=== PATIENT | female | born 1990 | race Caucasian/White ===

== ENCOUNTER → 2020-01-17 14:09 | Outpatient (BNVA) | payer OTHER, SELFPAY | PROVIDERS: PCP Internal Medicine; Referring Provider Internal Medicine; Visit Provider Obstetrics & Gynecology | DX: Z76.89 Persons encountering health services in other specified circumstances (principal) ==

== ENCOUNTER 2020-01-26 15:35 | Outpatient (REF) | payer OTHER, SELFPAY ==
[2020-01-26 16:31] LABS: MANUAL DIFF FLAG NO
[2020-01-26 16:34] LABS: Basophils Percent Auto 0.1 % (0-2); Eosinophils Absolute Auto 0.2 X10*3/uL (0.0-0.4); Eosinophils Percent Auto 2.4 % (0-4); Hematocrit 37.7 % (37-47); Hemoglobin 11.7 g/dl (12.0-16.0); Imm Gran Abs Auto 0.02 X10*3/uL (0.00-0.03); Imm Gran Pct Auto 0.2 % (0.0-0.4); Lymphocytes Absolute Auto 3.4 X10*3/uL (1.2-4.9); Lymphocytes Percent Auto 38.4 % (20-40); Mean Corpuscular Hemoglobin 23.9 pg (27.0-33.0); Mean Corpuscular Volume 77.1 fL (80-98); Mean Platelet Volume 9.6 fL (9.4-12.3); Monocytes Absolute Auto 0.5 X10*3/uL (0.1-1.2); Monocytes Percent Auto 6.1 % (2-11); Neutrophils Absolute Auto 4.7 X10*3/uL (2.0-8.3); Neutrophils Percent Auto 52.8 % (45-73); Platelet Count 399 X10*3/uL (160-400); Red Blood Count 4.89 X10*6/uL (4.20-5.50); Red Cell Distribution Width 14.6 % (11.0-16.0); White Blood Count 8.8 X10*3/uL (4.8-10.8)
== END 2020-01-26 15:36 | disposition home or self-care (01) ==
LOC: HO.LAB 15:35
PROVIDERS: Absent Provider Obstetrics & Gynecology; PCP Internal Medicine; Visit Provider Internal Medicine
DX: D50.8 Other iron deficiency anemias (principal); J45.909 Unspecified asthma, uncomplicated
CPT/HCPCS: 36415; 85025

== ENCOUNTER → 2020-02-10 09:41 | Outpatient (BNVA) | payer OTHER, SELFPAY | PROVIDERS: Visit Provider Obstetrics & Gynecology | DX: Z76.89 Persons encountering health services in other specified circumstances (principal) ==

== ENCOUNTER 2020-03-16 14:56 | Outpatient (REF) | payer OTHER, SELFPAY ==
[2020-03-18 11:28] LABS: C. trachomatis RNA TMA NOT DETECTED (NOT DETECTED); N. gonorrhoeae RNA TMA NOT DETECTED (NOT DETECTED)
[2020-03-24 23:37] LABS: HPV mRNA E6/E7 Not Detected (Not Detected)
== END 2020-03-16 14:57 | disposition home or self-care (01) ==
LOC: HO.LAB 14:56
PROVIDERS: PCP Internal Medicine; Visit Provider Obstetrics & Gynecology
DX: Z01.419 Encounter for gynecological examination (general) (routine) without abnormal findings (principal); R10.2 Pelvic and perineal pain; R31.29 Other microscopic hematuria
CPT/HCPCS: 36415; 81003; 81025; 87491; 87591; 87624; 88142

== ENCOUNTER 2020-03-21 13:44 | Outpatient (REF) | payer OTHER, SELFPAY ==
--- NOTE | 2020-03-21 13:48 | US_ITS ---
EXAMINATION: ULTRASOUND PELVIS CLINICAL INFORMATION: COMPARISON: None TECHNIQUE: Transabdominal and transvaginal ultrasound of the pelvis is performed. FINDINGS: On transabdominal ultrasound the uterus is anteverted and anteflexed measuring 7.6 cm in length, 4.2 cm in AP and 4.8 cm in transverse dimension. Endometrial thickness is 0.9 cm. The uterus is slightly heterogeneous but no focal lesions seen. There are anechoic cysts in the cervix. The right ovary measures 2.8 x 2.0 x 3.1 cm and volume 9.1 mL. It appears unremarkable. There is a complex cystic structure seen in the right adnexa, avascular. Complex paraovarian cyst or endometrioma. It measures 2.2 x 1.5 x 1.5 cm. Left ovary measures 2.1 x 1.9 x 2.1 cm and volume 4.4 mL. It appears unremarkable. There is no free fluid in the cul-de-sac. US/US transvaginal IMPRESSION: 1. Complex avascular 2.2 cm lesion in right adnexa. Complex paraovarian cyst or endometrioma. Follow-up with a repeat ultrasound after 2 cycles or an MRI pelvis can be performed if patient has non resolving right lower quadrant pain. 2. The uterus and ovaries are unremarkable.
--- NOTE | 2020-03-21 13:48 | US_ITS ---
EXAMINATION: ULTRASOUND PELVIS CLINICAL INFORMATION: COMPARISON: None TECHNIQUE: Transabdominal and transvaginal ultrasound of the pelvis is performed. FINDINGS: On transabdominal ultrasound the uterus is anteverted and anteflexed measuring 7.6 cm in length, 4.2 cm in AP and 4.8 cm in transverse dimension. Endometrial thickness is 0.9 cm. The uterus is slightly heterogeneous but no focal lesions seen. There are anechoic cysts in the cervix. The right ovary measures 2.8 x 2.0 x 3.1 cm and volume 9.1 mL. It appears unremarkable. There is a complex cystic structure seen in the right adnexa, avascular. Complex paraovarian cyst or endometrioma. It measures 2.2 x 1.5 x 1.5 cm. Left ovary measures 2.1 x 1.9 x 2.1 cm and volume 4.4 mL. It appears unremarkable. There is no free fluid in the cul-de-sac. US/US pelvic complete IMPRESSION: 1. Complex avascular 2.2 cm lesion in right adnexa. Complex paraovarian cyst or endometrioma. Follow-up with a repeat ultrasound after 2 cycles or an MRI pelvis can be performed if patient has non resolving right lower quadrant pain. 2. The uterus and ovaries are unremarkable.
== END 2020-03-21 13:45 | disposition home or self-care (01) ==
LOC: HO.US 13:44
PROVIDERS: Visit Provider Obstetrics & Gynecology
DX: R10.2 Pelvic and perineal pain (principal)
CPT/HCPCS: 76830; 76856

== ENCOUNTER 2020-03-28 14:25 | Outpatient (REF) | payer OTHER, SELFPAY ==
[2020-03-29 10:22] LABS: CA-125 10 U/mL (<35)
[2020-03-30 17:32] LABS: C. trachomatis RNA TMA NOT DETECTED (NOT DETECTED); N. gonorrhoeae RNA TMA NOT DETECTED (NOT DETECTED)
== END 2020-03-28 14:26 | disposition home or self-care (01) ==
LOC: HO.LAB 14:25
PROVIDERS: PCP Internal Medicine; Visit Provider Obstetrics & Gynecology
DX: N83.291 Other ovarian cyst, right side (principal)
CPT/HCPCS: 36415; 81003; 86304; 87491; 87591; 99212

== ENCOUNTER 2020-06-26 11:19 | Outpatient (REF) | payer OTHER, SELFPAY ==
--- NOTE | ~2020-06-26 | US_ITS ---
EXAMINATION: PELVIC ULTRASOUND CLINICAL INFORMATION: Follow-up right adnexal cyst COMPARISON: Previous exam February 2020 TECHNIQUE: Transabdominal and transvaginal pelvic ultrasound was performed. Transvaginal exam was performed for better visualization of the uterus and ovaries. FINDINGS: The uterus is anteverted and measures 7.6 x 4.7 x 5.4 cm in dimension. No focal uterine lesion is seen. Endometrial thickness is normal measuring 1.1 cm. There are nabothian cysts in the cervix. The right ovary is normal-appearing and measures 3.1 x 2 x 1.4 cm. There is an adjacent right adnexal minimally complex cyst with slightly thickened wall. This measures 1.9 x 1.4 x 1.5 cm. This may be slightly decreased in size from previous pelvic ultrasound of this measured 2.2 x 1.5 x 1.5 cm. The left ovary is seen transabdominally only and is normal-appearing. The left ovary measures 2.3 x 1.8 x 2.1 cm. There is no fluid in the pelvis. US/US transvaginal IMPRESSION: Slight interval decrease in the right adnexal cyst measuring 1.9 x 1.4 x 1.5 cm compared to 2.2 x 1.5 x 1.5 cm on February 2020 exam.
--- NOTE | ~2020-06-26 | US_ITS ---
EXAMINATION: PELVIC ULTRASOUND CLINICAL INFORMATION: Follow-up right adnexal cyst COMPARISON: Previous exam February 2020 TECHNIQUE: Transabdominal and transvaginal pelvic ultrasound was performed. Transvaginal exam was performed for better visualization of the uterus and ovaries. FINDINGS: The uterus is anteverted and measures 7.6 x 4.7 x 5.4 cm in dimension. No focal uterine lesion is seen. Endometrial thickness is normal measuring 1.1 cm. There are nabothian cysts in the cervix. The right ovary is normal-appearing and measures 3.1 x 2 x 1.4 cm. There is an adjacent right adnexal minimally complex cyst with slightly thickened wall. This measures 1.9 x 1.4 x 1.5 cm. This may be slightly decreased in size from previous pelvic ultrasound of this measured 2.2 x 1.5 x 1.5 cm. The left ovary is seen transabdominally only and is normal-appearing. The left ovary measures 2.3 x 1.8 x 2.1 cm. There is no fluid in the pelvis. US/US pelvic complete IMPRESSION: Slight interval decrease in the right adnexal cyst measuring 1.9 x 1.4 x 1.5 cm compared to 2.2 x 1.5 x 1.5 cm on February 2020 exam.
== END 2020-06-26 11:20 | disposition home or self-care (01) ==
LOC: HO.US 11:19
PROVIDERS: PCP Internal Medicine; Visit Provider Obstetrics & Gynecology
DX: N83.291 Other ovarian cyst, right side (principal)
CPT/HCPCS: 76830; 76856

== ENCOUNTER → 2020-07-10 11:29 | Outpatient (BNVA) | payer OTHER, SELFPAY | PROVIDERS: PCP Internal Medicine; Visit Provider Obstetrics & Gynecology ==

== ENCOUNTER 2020-10-19 09:38 | Outpatient (REF) | payer OTHER, SELFPAY ==
--- NOTE | ~2020-10-19 | US_ITS ---
EXAMINATION: US PELVIS CLINICAL INFORMATION: Ovarian cyst, unspecified site. COMPARISON: None TECHNIQUE: Ultrasound of the pelvis is performed using both transabdominal and transvaginal transducers along with Doppler. Transvaginal imaging is performed due to inadequate visualization transabdominally. FINDINGS: The uterus is anteverted and anteflexed measuring 8.8 cm in length, 3.5 cm in AP and 5.5 cm in transverse dimension. The uterus is homogeneous in echotexture. No focal lesion seen. The endometrial thickness is 1.0 cm. There are small nabothian cysts in the cervix. The right ovary measures 1.7 x 2.3 x 1.8 cm and volume 3.7 mL. There is a right adnexal cyst measuring 2.3 x 1.9 x 1.7 cm. Previously, it measured 1.9 x 1.4 x 1.5 cm. Question endometrioma. Previously, the right ovary measured 3.1 x 2.0 x 1.4 cm. The left ovary measures 2.1 x 2.5 x 2.9 cm and volume 7.9 mL. Previously, the left ovary measured 2.3 x 1.8 x 2.2 cm. There is a small amount of free fluid in the cul-de-sac. US/US pelvic and transvaginal IMPRESSION: Right adnexal cyst measures 2.3 x 1.9 x 1.7 cm. It has minimally increased in size. There are small nabothian cysts in the cervix. The uterus is unremarkable.
== END 2020-10-19 09:39 | disposition home or self-care (01) ==
LOC: HO.US 09:38
PROVIDERS: Visit Provider Obstetrics & Gynecology
DX: N83.299 Other ovarian cyst, unspecified side (principal)
CPT/HCPCS: 76830; 76856

== ENCOUNTER → 2020-10-24 12:55 | Outpatient (BNVA) | payer OTHER, SELFPAY | PROVIDERS: PCP Internal Medicine; Visit Provider Obstetrics & Gynecology ==

== ENCOUNTER 2020-11-06 08:44 | Outpatient (REF) | payer OTHER, SELFPAY ==
--- NOTE | ~2020-11-06 | MR_ITS ---
EXAMINATION: MR PELVIS WITHOUT AND WITH CONTRAST CLINICAL INFORMATION: Ovarian cyst, right side. COMPARISON: Previous pelvic ultrasounds, most recent September 2020. TECHNIQUE: Sagittal, axial and coronal sequences through the pelvis were performed with and without contrast. The patient received 8.5 mL intravenous Gadavist contrast. FINDINGS: The uterus is anteverted and measures 9 x 4 x 5.3 cm in sagittal AP and transverse dimension. No focal uterine lesion is seen. The endometrium does not appear thickened measuring 4 mm. The junctional zone is normal. There are small nabothian cysts in the cervix. The ovaries are normal appearing. The right ovary measures 3.3 x 1.9 x 1.5 cm. The left ovary measures 2.8 x 1.5 x 2 cm. There are small follicles seen in both ovaries. No complex cyst or mass is seen. The bladder is not optimally distended. There is question of a 1.5 cm cyst in the cecum. This is low signal on T1-weighted sequences, high signal on T2 T2-weighted sequences and demonstrates no evidence of enhancement for example axial T2 image 1 series 7, coronal T2 image 17 series 8 and sagittal T2 image 19 series 5. The visualized bowel is otherwise unremarkable. No ascites or adenopathy is seen. No hernia is seen. MR/MR pelvis wo/w con IMPRESSION: Normal-appearing ovaries. No ovarian cyst is seen. Question 1.5 cm cyst in the cecum.
== END 2020-11-06 08:45 | disposition home or self-care (01) ==
LOC: HO.MRI 08:44
PROVIDERS: PCP Internal Medicine; Visit Provider Obstetrics & Gynecology
DX: N83.291 Other ovarian cyst, right side (principal)
CPT/HCPCS: 72197; A9585

== ENCOUNTER 2020-12-12 16:13 | Outpatient (REF) | payer OTHER, SELFPAY ==
[2020-12-12 16:24] LABS: MANUAL DIFF FLAG NO
[2020-12-12 16:53] LABS: Eosinophils Absolute Auto 0.2 X10*3/uL (0.0-0.4); Eosinophils Percent Auto 2.1 % (0-4); Hematocrit 36.6 % (37-47); Hemoglobin 11.8 g/dl (12.0-16.0); Imm Gran Abs Auto 0.04 X10*3/uL (0.00-0.03); Imm Gran Pct Auto 0.4 % (0.0-0.4); Lymphocytes Absolute Auto 3.3 X10*3/uL (1.2-4.9); Lymphocytes Percent Auto 31.2 % (20-40); Mean Corpuscular HGB Conc 32.2 g/dl (31.0-35.0); Mean Corpuscular Hemoglobin 24.9 pg (27.0-33.0); Mean Corpuscular Volume 77.4 fL (80-98); Mean Platelet Volume 9.7 fL (9.4-12.3); Monocytes Absolute Auto 0.6 X10*3/uL (0.1-1.2); Neutrophils Absolute Auto 6.4 X10*3/uL (2.0-8.3); Neutrophils Percent Auto 60.3 % (45-73); Platelet Count 469 X10*3/uL (160-400); Red Blood Count 4.73 X10*6/uL (4.20-5.50); Red Cell Distribution Width 13.8 % (11.0-16.0); White Blood Count 10.6 X10*3/uL (4.8-10.8)
[2020-12-12 17:31] LABS: Alanine Aminotransferase 53 U/L (0-31); Albumin Level 4.6 g/dL (3.5-5.0); Alkaline Phosphatase 83 U/L (39-117); Anion Gap 14 (12-20); Aspartate Amino Transferase 36 U/L (5-31); Bilirubin Total 0.2 mg/dL (0.0-1.0); Blood Urea Nitrogen 13 mg/dL (9-16); Calcium 10.2 mg/dL (8.4-10.2); Carbon Dioxide 26 mmol/L (22-29); Chloride 105 mmol/L (96-108); Cholesterol 184 mg/dL; Estimated Glomerular Filt Rate > 60; Glucose Random 99 mg/dL (60-115); HDL Cholesterol 31 mg/dL; LDL Cholesterol Calculated 117 mg/dl; Potassium 4.9 mmol/L (3.3-5.1); Sodium 140 mmol/L (135-145); Total Protein 7.8 g/dL (6.5-8.0); Triglycerides 181 mg/dL
== END 2020-12-12 16:14 | disposition home or self-care (01) ==
LOC: HO.LAB 16:13
PROVIDERS: PCP Internal Medicine; Visit Provider Internal Medicine
DX: I10 Essential (primary) hypertension (principal); M54.89 Other dorsalgia; R51.9 Headache, unspecified
CPT/HCPCS: 36415; 80053; 80061; 85025

== ENCOUNTER → 2020-12-18 08:25 | Outpatient (BNVA) | payer OTHER, SELFPAY | PROVIDERS: PCP Internal Medicine; Visit Provider Obstetrics & Gynecology | DX: N83.291 Other ovarian cyst, right side (principal); K63.9 Disease of intestine, unspecified | CPT/HCPCS: 99212 ==

== ENCOUNTER 2021-02-21 15:00 | Outpatient (RCR) | payer OTHER, SELFPAY | END 2021-02-21 15:44 | disposition home or self-care (01) | LOC: HO.PT 15:00 | PROVIDERS: PCP Internal Medicine; Visit Provider Internal Medicine | DX: M54.16 Radiculopathy, lumbar region (principal) | CPT/HCPCS: 97110; 97112; 97140; 97150; 97162; 97530 ==

== ENCOUNTER 2021-03-09 08:03 | Outpatient (REF) | payer OTHER, SELFPAY ==
--- NOTE | ~2021-03-09 | US_ITS ---
EXAMINATION: US ABDOMEN COMPLETE CLINICAL INFORMATION: Elevated liver enzymes. COMPARISON: XR abdomen KUB 09/15/2017. TECHNIQUE: Real-time imaging of the abdominal viscera. FINDINGS: PANCREAS: Normal. ABDOMINAL AORTA: The proximal, mid, and distal segments are normal in caliber. INFERIOR VENA CAVA: Visualized portions are normal. LIVER: The liver is normal in size. The liver contour is normal. Liver echotexture is increased. No focal hepatic lesion. There is no intrahepatic biliary duct dilatation seen. GALLBLADDER: Normal. The gallbladder is physiologically distended without evidence of stones, sludge, polyps, wall thickening or pericholecystic fluid. COMMON BILE DUCT: Normal in caliber measuring 0.6 cm in diameter. RIGHT KIDNEY: Normal. No hydronephrosis. No renal calculi or focal parenchymal lesions. The kidney measures 10.5 cm in maximum dimension. LEFT KIDNEY: Normal. No hydronephrosis. No renal calculi or focal parenchymal lesions. The kidney measures 10.8 cm in maximum dimension. SPLEEN: Normal. The spleen measures 9.9 cm in maximum dimension. FREE FLUID: None. US/US abdomen complete IMPRESSION: Echogenic liver probably representing fatty infiltration.
== END 2021-03-09 08:04 | disposition home or self-care (01) ==
LOC: HO.US 08:03
PROVIDERS: PCP Internal Medicine; Visit Provider Internal Medicine
DX: R74.8 Abnormal levels of other serum enzymes (principal)
CPT/HCPCS: 76700

== ENCOUNTER 2021-03-09 08:42 | Outpatient (REF) | payer OTHER, SELFPAY ==
[2021-03-13 01:57] LABS: CA-125 9 U/mL (<35)
== END 2021-03-09 08:43 | disposition home or self-care (01) ==
LOC: HO.LAB 08:42
PROVIDERS: PCP Internal Medicine; Visit Provider Obstetrics & Gynecology
DX: N83.299 Other ovarian cyst, unspecified side (principal)
CPT/HCPCS: 36415; 86304

== ENCOUNTER → 2021-03-21 08:19 | Outpatient (BNVA) | payer OTHER, SELFPAY | PROVIDERS: PCP Internal Medicine; Visit Provider Obstetrics & Gynecology ==

== ENCOUNTER 2021-03-26 08:04 | Day surgery (SDC) | payer OTHER, SELFPAY ==
[2021-03-20 14:30] VITALS: BMI 39.2
--- NOTE | 2021-03-23 10:32 | HO.ANESPROP2 ---
Documented by User: Mary Anne Phillips NP 03/23/21 10:33 HPI - Anesthesia Eval Consult details Narrative: 30yo F for Upper Endoscopy and Colonoscopy [facility] Active Problems Active Problems: All Active Problems (Updated 12/18/20 @ 08:46 by Shabbir Perez MD) Disorder of cecum (Acute) Complex cyst of right ovary (Acute) Microscopic hematuria (Acute) Pelvic pain (Acute) Well woman exam (Acute) Anemia (Acute) Family History Family History Mother Diabetes Scoliosis Father Kidney failure Brother Scoliosis Surgical History Surgical History Hx of section Social History Social History Alcohol intake: never Patient Tobacco Use Status: Never used Tobacco Use of substances other than those prescribed or required for medical reasons: No Are you DNR?: No Advance Directives: No Advance Directives Information Provided: Yes Sexual orientation: Straight/Heterosexual Gender identity: Female Meds Allergies Allergy/AdvReac Type Severity Reaction Status Date / Time garlic [GARLIC] Allergy Severe DIARRHEA Verified 03/21/21 08:32 Garlic Allergy Unknown stomach Uncoded 12/18/20 08:36 upset Home Medications Medication Instructions Recorded Confirmed Last Taken Type omeprazole 10 mg capsule,delayed 10 mg PO DAILY 07/10/20 Unknown History release Exam Exam Date and Time: March 23, 2021 1032 Height,Weight and Vital Signs: Height 4 ft 11 in Weight 87.997 kg Assessment and Plan Assessment Anesthesia Assessment: Chart Reviewed Documented by User: Jacinda Villatoro MD 03/26/21 09:10 [facility] Family History Family History Mother Diabetes Scoliosis Father Kidney failure Brother Scoliosis Family history of problems with anesthesia: No Surgical History Surgical History Hx of section History of Problems with Anesthesia: No Social History Social History Alcohol intake: never Patient Tobacco Use Status: Never used Tobacco Use of substances other than those prescribed or required for medical reasons: No Are you DNR?: No Advance Directives: No Advance Directives Information Provided: Yes Sexual orientation: Straight/Heterosexual Gender identity: Female Meds Allergies Allergy/AdvReac Type Severity Reaction Status Date / Time garlic [GARLIC] Allergy Severe DIARRHEA Verified 03/21/21 08:32 Garlic Allergy Unknown stomach Uncoded 12/18/20 08:36 upset Home Medications Medication Instructions Recorded Confirmed Last Taken Type omeprazole 10 mg capsule,delayed 10 mg PO DAILY 07/10/20 Unknown History release Exam Airway Mallampati Class: II TM Dist: >3cm Neck ROM: Full Heart: rrr Lungs: cta Assessment and Plan Assessment Anesthesia Assessment: Anesthesia Plan Discussed and Chart Reviewed Final Anesthetic Review Family History of Problems with Anesthesia: No History of Problems with Anesthesia: No NPO: Yes ASA Class: II Final Preanesthetic Review: No Changes in Pt Med Stat, Meds/Allgs Chart Reviewed, Consent Obtained/Reviewed and Anes Risks/Benef Reviewed Patient Risk: Intermediate Procedure Risk: Intermediate Anesthetic Plan Anesthetic Plan: MAC: Disposition: Standard PACU
[2021-03-26 09:13] LABS: UPreg QC Valid YES; Urine Pregnancy NEGATIVE (NEGATIVE)
[2021-03-26] MEDS: Lactated Ringers 1,000 ML 100 ML IVCONT (09:24)
[2021-03-26 10:40] VITALS: BP 95/58; PULSE 86; RESP 20; TEMP 36.4; O2SAT 97
--- NOTE | 2021-03-26 10:44 | PM.OP ---
Brief Operative Note Date of Service: 03/26/21 Pre-op diagnosis: GERD, Abnormal MRI of colon Post-op diagnosis: other (Small hiatal hernia, Cecal lipoma) Procedure: EGD, Colonoscopy to the cecum and TI with biopsies Surgeon: Mykel Francis Anesthesia: MAC Was an Ski Lift Operator used for this Procedure?: No Estimated blood loss (mL): 2.0 Pathology: other (A. Cecal lipoma) Condition: stable Disposition: PACU
[2021-03-26 10:55] VITALS: BP 114/48; PULSE 84; RESP 18; TEMP 36.3; O2SAT 99
--- NOTE | 2021-03-26 11:28 | OP_ITS ---
SURGEON: Mykel Francis MD INDICATIONS: The patient presents for evaluation of chronic gastroesophageal reflux and abnormal MRI of the colon. Full consent has been obtained from her for this, including risks of bleeding and perforation. PREOPERATIVE DIAGNOSIS: POSTOPERATIVE DIAGNOSIS: PROCEDURE PERFORMED: Esophagogastroduodenoscopy and colonoscopy to the cecum and terminal ileum with biopsy. ESTIMATED BLOOD LOSS: COMPLICATIONS: ANESTHESIA: Monitored anesthesia care. ASSISTANTS: SPECIMENS: PREOPERATIVE DIAGNOSES: Gastroesophageal reflux and abnormal MRI of colon. POSTOPERATIVE DIAGNOSES: Gastroesophageal reflux, abnormal MRI of colon, small hiatal hernia, cecal lipoma, internal hemorrhoids. DESCRIPTION OF PROCEDURE: The patient was placed in the left lateral decubitus position. The Olympus video gastroscope was passed in the posterior oropharynx and upper esophagus under direct vision. The scope was passed slowly into the distal esophagus. The gastroesophageal junction appeared normal at 35 cm. There was no sign of any esophagitis nor Jessica's esophagus. The scope entered the stomach. There was a small hiatal hernia. The scope was advanced to the pylorus and the duodenum was cannulated to the descending portion. The duodenum including the bulb appeared normal without mass or ulceration. The scope was withdrawn back in the stomach. The gastric antrum and body appeared normal with good peristalsis. The scope was retroflexed visualizing the proximal stomach carefully, which appeared normal, without any sign of mass or ulceration. Scope was straightened and withdrawn back to the esophagus. The esophageal mucosa appeared normal. Scope was withdrawn from the patient. She was turned around for the colonoscopy. The digital rectal exam revealed no abnormalities. The Olympus video pediatric colonoscope was entered into the rectum and advanced easily to the cecum. Once in the cecum, I did identify normal-appearing cecal pouch other than what appeared to be a submucosal mass consistent with lipoma. The overlying mucosa appeared normal and was quite soft when probed with a biopsy forceps. Several biopsies were obtained. This corresponded with the abnormality seen on the MRI. The terminal ileum was cannulated and appeared normal. Scope was withdrawn back in the colon. The remainder of the cecum including the appendiceal orifice appeared normal. The scope was then slowly withdrawn assessing all mucosal surfaces carefully. For the most part, preparation was very good throughout the colon. There was no sign of any polyps, colitis, nor angiodysplasia. In the rectum, scope was retroflexed visualizing some internal hemorrhoids, but no other pathology. The rectal mucosa appeared normal. The scope was straightened and withdrawn from the patient. She tolerated the procedure well and was returned to the recovery area in stable condition. IMPRESSION: 1. Cecal lipoma. 2. Internal hemorrhoids. 3. Small hiatal hernia. PLAN: The results of biopsies will be checked. She will continue her omeprazole as that is working well for her in regard to the reflux. She will be seen later in the year for followup in regard to the slightly elevated LFTs and presumed fatty liver. She had an ultrasound and lab work which I will check. MD KRISTA Hernandez/BART / [id number] MTDD
== END 2021-03-26 11:28 | disposition home or self-care (01) ==
PROVIDERS: Nurse Practitioner; PCP Internal Medicine; Visit Provider Internal Medicine
PROC: (CPT 45380; principal; 2021-03-26 09:30)
DX: D17.5 Benign lipomatous neoplasm of intra-abdominal organs (principal); K64.8 Other hemorrhoids; K21.9 Gastro-esophageal reflux disease without esophagitis; K44.9 Diaphragmatic hernia without obstruction or gangrene; R74.01 Elevation of levels of liver transaminase levels; Z79.899 Other long term (current) drug therapy
CPT/HCPCS: 45380; 43235; 81025; 88305

== ENCOUNTER 2021-06-19 11:45 | Emergency (ER) | payer OTHER, SELFPAY ==
--- NOTE | ~2021-06-19 | XR_ITS ---
EXAMINATION: XR KNEE, LEFT CLINICAL INFORMATION: Atraumatic left knee pain COMPARISON: None TECHNIQUE: Four views of the left knee. FINDINGS: Bones and soft tissues are normal. No fracture or joint effusion. Alignment is anatomic. Joint spaces are well maintained. No abnormal soft tissue calcification. XR/XR knee LT 4V IMPRESSION: Normal left knee.
[2021-06-19 12:03] VITALS: BP 136/80; PULSE 79; RESP 18; TEMP 36.3; O2SAT 99; BMI 39.9
--- NOTE | 2021-06-19 12:36 | ED.GENADULT ---
HPI - General Adult General Chief complaint: Skin/Abscess/Foreign Body Stated complaint: lump with burning feeling in leg Time Seen by Provider: 06/19/21 12:21 Source: patient Mode of arrival: ambulatory Limitations: no limitations History of Present Illness HPI narrative: 30-year-old female states that she was walking for hours yesterday which is very abnormal for her but she had done she noticed some pain to her calf and to her dean she denies any falls or injuries and she noticed a small bruise to the area she is very concerned as she states she also had some numbness to her left calf. Patient denies any chest pain cough fever falls or injuries. Related Data Home Medications Medication Instructions Recorded Confirmed omeprazole 10 mg capsule,delayed 10 mg PO DAILY 07/10/20 release Allergies Allergy/AdvReac Type Severity Reaction Status Date / Time garlic [GARLIC] Allergy Severe DIARRHEA Verified 06/19/21 12:03 Garlic Allergy Unknown stomach Uncoded 12/18/20 08:36 upset Review of Systems Review of Systems: Review of systems: General: Patient denies any fever chills recent illness or falls Musculoskeletal: Denies back pain or body aches or other injuries HEENT: denies headache, runny nose, ear pain Respiratory: denies shortness of breath, cough Cardiovascular: no chest pain or palpitations : denies dysuria, frequency Abdomen: no nausea vomiting denies abdominal pain Extremities: no swelling, pain to upper mid dean where there is a bruise as well as left calf numbness Skin: no diaphoresis Yes all other systems are reviewed and are negative PMFSH Past Medical History Surgical History Hx of section Family History Family History Mother Diabetes Scoliosis Father Kidney failure Brother Scoliosis Social History Social History Alcohol intake: never Patient Tobacco Use Status: Never used Tobacco Advance Directives: No Advance Directives Information Provided: No Sexual orientation: Straight/Heterosexual Gender identity: Female Physical Exam ED Vital Signs: Vital Signs - 24 hr 06/19/21 12:03 Temperature 97.3 F Pulse Rate 79 Respiratory Rate 18 Blood Pressure 136/80 Pulse Oximetry 99 BMI result Body Mass Index 39.9 General: Well-appearing well-nourished in no signs of distress HEENT: Normocephalic atraumatic Neck: No signs of JVD, no masses no tenderness or lymphadenopathy Cardiovascular: Regular rate and rhythm Respiratory: Clear to auscultation bilaterally Abdomen: Soft nontender no masses Extremities: Normal pedal pulses no signs of edema normal strength Skin: Small contusion to upper mid dean no other injuries Dry warm no rashes Back: No tenderness full ROM Medical Decision Making MDM Narrative Medical decision making narrative: This sounds like an overuse injury after much walking I do not think there is any acute disease process x-rays ordered by triage which has not able to cancel I think ibuprofen and ice and decreased ambulation next 2 days this should resolve not think there is any lab tests and redone. Imaging Data XR knee shows no acute disese process I will send home.: Attestation: I personally reviewed and interpreted this imaging study as follows: Discharge Plan Discharge Clinical Impression: Anterior dean splints, Contusion Patient Disposition: Home, Self-Care Instructions: Dean Splints (ED), Contusion in Adults (ED) Additional Instructions: Your x-ray is normal please call follow-up with . Please use ice elevate the leg the next 2 days and can try ibuprofen for pain. If you have any other concerns please do not hesitate to come back to the emergency department. Prescriptions: No Action omeprazole 10 mg capsule,delayed release(DR/EC) 10 mg PO DAILY 0RF
[2021-06-19] MEDS: Ibuprofen 400 MG TABLET PO (12:57)
== END 2021-06-19 13:20 | disposition home or self-care (01) ==
PROVIDERS: Emergency Provider Student in an Organized Health Care Education/Training Program; PCP Internal Medicine
DX: S80.12XA Contusion of left lower leg, initial encounter (principal); S86.899A Other injury of other muscle(s) and tendon(s) at lower leg level, unspecified leg, initial encounter; X58.XXXA Exposure to other specified factors, initial encounter; Y93.9 Activity, unspecified; Y92.9 Unspecified place or not applicable; Y99.9 Unspecified external cause status
CPT/HCPCS: 73564; 99283

== ENCOUNTER 2021-08-08 16:13 | Outpatient (REF) | payer OTHER, SELFPAY ==
[2021-08-08 16:34] LABS: MANUAL DIFF FLAG NO
[2021-08-08 16:55] LABS: Basophils Percent Auto 0.2 % (0-2); Eosinophils Absolute Auto 0.2 X10*3/uL (0.0-0.4); Eosinophils Percent Auto 2.1 % (0-4); Hematocrit 37.9 % (37.0-47.0); Hemoglobin 12.1 g/dl (12.0-16.0); Imm Gran Abs Auto 0.03 X10*3/uL (0.00-0.03); Imm Gran Pct Auto 0.3 % (0.0-0.4); Lymphocytes Percent Auto 31.2 % (20-40); Mean Corpuscular HGB Conc 31.9 g/dl (31.0-35.0); Mean Corpuscular Hemoglobin 24.5 pg (27.0-33.0); Mean Corpuscular Volume 76.9 fL (80.0-98.0); Mean Platelet Volume 9.8 fL (9.4-12.3); Monocytes Absolute Auto 0.6 X10*3/uL (0.1-1.2); Monocytes Percent Auto 5.9 % (2-11); Neutrophils Absolute Auto 5.8 x10*3/uL (2.0-8.3); Neutrophils Percent Auto 60.3 % (45-73); Platelet Count 390 X10*3/uL (160-400); Red Blood Count 4.93 X10*6/uL (4.20-5.50); Red Cell Distribution Width 14.5 % (11.0-16.0); White Blood Count 9.7 X10*3/uL (4.8-10.8)
[2021-08-08 16:59] LABS: INTERNATIONAL NORM RATIO 1.1 (0.9-1.1); Prothrombin Time 12.1 SEC (9.9-13.0)
[2021-08-08 17:31] LABS: Alanine Aminotransferase 43 U/L (0-31); Albumin Level 4.5 g/dL (3.5-5.0); Alkaline Phosphatase 77 U/L (39-117); Aspartate Amino Transferase 32 U/L (5-31); Bilirubin Direct < 0.2 mg/dL (0.0-0.5); Bilirubin Total 0.3 mg/dL (0.0-1.0); Iron 46 mcg/dL (30-160); Percent Iron Saturation 12 % (15-50); Total Iron Binding Capacity 398 mcg/dL (228-428); Total Protein 7.6 g/dL (6.5-8.0); Unsaturated Iron Binding 352 ug/dL
[2021-08-08 17:53] LABS: Ferritin 25 ng/mL (10-122)
[2021-08-09 08:45] LABS: HBS Num1 142.15 mIU/mL (0-7.99); HBc Num1 0.09 S/CO (0.00-0.79); HBsAGNum1 0.19 S/CO (0.00-0.99); Hepatitis B Core Antibody Nonreactive (Nonreactive); Hepatitis B Surface Antigen Negative (Negative); ~HepC Num1 0.08 S/CO (0.00-0.79); ~Hepatitis B Surface Antibody REACTIVE (Nonreactive); ~Hepatitis C Antibody Nonreactive (Nonreactive)
[2021-08-10 15:33] LABS: Anti Nuclear Antibody Screen NEGATIVE (NEGATIVE); Immunoglobulin A 281 mg/dL (47-310)
[2021-08-10 22:16] LABS: Alpha 1 Anti-trypsin 132 mg/dL (83-199); Ceruloplasmin 32 mg/dL (18-53)
[2021-08-11 07:52] LABS: Gliadin Deamidated IgA Ab <1.0 U/mL; Gliadin Deamidated IgG Ab <1.0 U/mL; Transglutaminase Ab IgG <1.0 U/mL; Transglutaminase IgA <1.0 U/mL
[2021-08-13 17:10] LABS: Mitochondrial Antibodies NEGATIVE (NEGATIVE)
[2021-08-14 00:12] LABS: Endomysial IgA Antibody Negative (Negative)
[2021-08-14 23:21] LABS: Smooth Muscle Antibody <20 U (<20)
== END 2021-08-08 16:14 | disposition home or self-care (01) ==
LOC: HO.LAB 16:13
PROVIDERS: PCP Internal Medicine; Visit Provider Internal Medicine
DX: K52.9 Noninfective gastroenteritis and colitis, unspecified (principal); R74.8 Abnormal levels of other serum enzymes
CPT/HCPCS: 36415; 80076; 82103; 82390; 82728; 82784; 83540; 85025; 85610; 86015; 86038; 86039; 86231; 86255; 86256; 86258; 86364; 86704; 86706; 86803; 87340

== ENCOUNTER 2021-09-11 15:09 | Outpatient (REF) | payer OTHER, SELFPAY ==
[2021-09-11 16:27] LABS: Thyroid Stimulating Hormone 1.75 uIU/mL (0.32-4.0)
[2021-09-13 16:56] LABS: Follicle Stimulating Hormone 5.5 mIU/mL; Prolactin 11.5 ng/mL
== END 2021-09-11 15:10 | disposition home or self-care (01) ==
LOC: HO.LAB 15:09
PROVIDERS: PCP Internal Medicine; Visit Provider Internal Medicine
DX: H81.11 Benign paroxysmal vertigo, right ear (principal); N91.1 Secondary amenorrhea
CPT/HCPCS: 36415; 83001; 84146; 84443

== ENCOUNTER 2021-11-19 13:32 | Outpatient (REF) | payer OTHER, SELFPAY ==
[2021-11-19 14:02] LABS: Hematocrit 39.8 % (37.0-47.0); Hemoglobin 12.6 g/dl (12.0-16.0); Mean Corpuscular HGB Conc 31.7 g/dl (31.0-35.0); Mean Corpuscular Volume 78.8 fL (80.0-98.0); Mean Platelet Volume 9.5 fL (9.4-12.3); Platelet Count 357 X10*3/uL (160-400); Red Blood Count 5.05 X10*6/uL (4.20-5.50); Red Cell Distribution Width 14.1 % (11.0-16.0); White Blood Count 10.8 X10*3/uL (4.8-10.8)
[2021-11-19 15:05] LABS: HCG Quantitative < 2 mIU/mL; TSH reflex Free T4 3.12 uIU/mL (0.32-4.0)
[2021-11-20 06:06] LABS: CT PCR NOT DETECTED (Not Detect.); NG PCR NOT DETECTED (Not Detect.)
== END 2021-11-19 13:33 | disposition home or self-care (01) ==
LOC: HO.LNP 13:32
PROVIDERS: Visit Provider Obstetrics & Gynecology
DX: Z11.3 Encounter for screening for infections with a predominantly sexual mode of transmission (principal); N93.9 Abnormal uterine and vaginal bleeding, unspecified
CPT/HCPCS: 84443; 84702; 85027; 87491; 87591; 99212

== ENCOUNTER 2021-12-10 13:35 | Outpatient (REF) | payer OTHER, SELFPAY ==
--- NOTE | ~2021-12-10 | US_ITS ---
EXAMINATION: US PELVIS CLINICAL INFORMATION: Abnormal uterine and vaginal bleeding. COMPARISON: None TECHNIQUE: Ultrasound of the pelvis is performed using both transabdominal and transvaginal transducers along with Doppler. Transvaginal imaging is performed due to inadequate visualization transabdominally. FINDINGS: UTERUS: The uterus is anteverted, anteflexed and measures 8.2 cm in length, 4.2 cm AP and 6.1 cm in transverse dimension. The double wall endometrial thickness measures 0.7 cm. The uterus is smooth in contour and has normal myometrial echogenicity. No visible fibroid. There are small nabothian cysts seen in the cervix. ADNEXA: Both ovaries are visualized. There is normal color flow to the adnexa. There is no ovarian torsion. There is no pelvic ascites or fluid collection. Right ovary measures 0.9 x 2.7 x 2.5 cm and volume 10.2 mL. There is a right para-adnexal cyst measuring 1.5 x 1.6 x 1.4 cm. Previously it measured 2.3 x 1.9 x 1.7 cm. Left ovary measures 2.6 x 1.5 x 2.3 cm and volume 4.7 mL. There is an anechoic cyst measuring 1.1 x 0.9 x 0.8 cm. There is no free fluid in the cul-de-sac. US/US pelvic and transvaginal IMPRESSION: 1. Unremarkable uterus. 2. Small nabothian cysts in the cervix. 3. Right para-adnexal cyst measuring 1.6 cm. Previously it measured 2.3 x 1.9 x 1.7 cm. 4. Simple cyst left ovary measuring 1.1 cm. 5. There is no free fluid in the cul-de-sac.
== END 2021-12-10 13:36 | disposition home or self-care (01) ==
LOC: HO.US 13:35
PROVIDERS: Visit Provider Obstetrics & Gynecology
DX: N93.9 Abnormal uterine and vaginal bleeding, unspecified (principal)
CPT/HCPCS: 76830; 76856

== ENCOUNTER → 2021-12-19 14:30 | Outpatient (BNVA) | payer OTHER, SELFPAY | PROVIDERS: PCP Internal Medicine; Visit Provider Obstetrics & Gynecology | DX: N93.9 Abnormal uterine and vaginal bleeding, unspecified (principal) | CPT/HCPCS: 99212 ==

== ENCOUNTER 2023-04-03 15:00 | Outpatient (RCR) | payer OTHER, SELFPAY | END 2023-05-07 11:22 | disposition home or self-care (01) | LOC: HO.PT 15:00 | PROVIDERS: PCP Internal Medicine; Visit Provider Internal Medicine | DX: M54.50 Low back pain, unspecified (principal) | CPT/HCPCS: 97110; 97112; 97161 ==

== ENCOUNTER 2023-10-22 19:07 | Emergency (ER) | payer OTHER, SELFPAY ==
--- NOTE | ~2023-10-22 | XR_ITS ---
EXAMINATION: XR FOOT, RIGHT CLINICAL INFORMATION: Pain COMPARISON: None available. TECHNIQUE: AP, lateral, and oblique views of the right foot. FINDINGS: The bones and soft tissues are normal. No fracture. Alignment is anatomic. Joint spaces are maintained. XR/XR foot RT min 3V IMPRESSION: Normal right foot. Electronically signed by: Asael Wu MD 10/22/2023 08:47 PM EDT RP
--- NOTE | ~2023-10-22 | XR_ITS ---
EXAMINATION: XR ANKLE, RIGHT CLINICAL INFORMATION: Pain. COMPARISON: None available. TECHNIQUE: AP, lateral, and mortise views of the right ankle. FINDINGS: No fracture. Alignment is anatomic. No erosions. Joint spaces are maintained. Soft tissues are normal. XR/XR ankle RT min 3V IMPRESSION: Normal right ankle. Electronically signed by: Asael Wu MD 10/22/2023 08:46 PM EDT RP
--- NOTE | 2023-10-22 19:50 | ED_ITS ---
HPI - General Adult General Chief complaint: Extremity Injury, Lower Stated complaint: trailer fell on foot Time Seen by Provider: 10/22/23 22:02 Source: patient Mode of arrival: ambulatory Limitations: no limitations History of Present Illness ED Provider: Dr. Brito HPI narrative: Patient dropped a trailer tongue on her foot. No other injury Onset (ago): hour(s) Related Data Home Medications ?Medication ?Instructions ?Recorded ?Confirmed omeprazole 10 mg capsule,delayed 10 mg PO DAILY 07/10/20 release Allergies Allergy/AdvReac Type Severity Reaction Status Date / Time garlic [GARLIC] Allergy Severe DIARRHEA Verified 10/22/23 19:53 Review of Systems Review of Systems: Yes all other systems are reviewed and are negative Neurologic: Denies Sensory deficit (Neuro) PMFSH Past Medical History Surgical History Hx of section Family History Family History Mother Diabetes Scoliosis Father Kidney failure Brother Scoliosis Social History Social History Household Members: Spouse Household Members Other:: daughter Housing: Apartment Alcohol intake: never Patient Tobacco Use Status: Never used Tobacco Advance Directives: No Advance Directives Information Provided: No Do you have a plan to hurt others: No Plan Current occupational status: employed Current occupation: [employer] M[employer]PER[employer] Sexual orientation: Straight/Heterosexual Gender identity: Female Physical Exam ED Vital Signs: Vital Signs - 24 hr 10/22/23 19:51 Temperature 97.1 F Pulse Rate 85 Respiratory Rate 18 Blood Pressure 136/77 Pulse Oximetry 100 Oxygen Delivery Method Room Air BMI result Body Mass Index 39.4 Const General: healthy appearing Nutritional Appearance: average body habitus Orientation/consciousness: oriented to person and patient oriented x3 Limitations: no limitations HENMT Head: Yes normal to inspection Ears: external ears normal General nose exam: Normal external nose present Mouth: Normal oral and palatal mucosa present and oropharynx normal Throat: Yes posterior oropharynx normal Eyes General: appearance normal, both eyes and all related structures Neck Neck: Yes normal visual inspection Chest Chest palpation & inspection: normal inspection of the chest Resp Auscultation: clear to auscultation bilaterally Cardio Jugular venous distension: no JVD Rate: regular rate Rhythm: regular rhythm Heart sounds: S1 normal heart sound present and S2 normal heart sound present GI Inspection: Yes normal to inspection Palpation (GI): Soft to palpation, nontender and No hepatosplenomegaly present Auscultation: normal bowel sounds General: Yes no CVA tenderness Back/Spine/Pelvis Back: no CVA tenderness Skin General skin exam: no rashes or lesions noted Neuro General: oriented to person and patient oriented x3 Cranial nerves: Yes CN's II-XII intact bilaterally Motor exam (neuro): 5/5 motor strength present throughout Sensory Exam: No Sensory deficit (Neuro) Extrem Other: right foot, with swelling and ecchymosis between 1st and 2nd digit on distal metatarsals Psych Appearance: grossly normal Course Course Course Narrative: This is an RME done by ALEXANDRA Moise: Additional HPI, ROS, PE not included below will be deferred to primary provider. 32 year old F presenting with complaints of R foot pain (09/02) after crush injury from dropping a trailer onto her R miriam lux. Appearance: Alert.? Oriented X3.? No acute cardiopulmonary distress distress.? Head: Normocephalic, atraumatic, no step-offs or deformities Neck: Normal inspection.? Neck supple.? CVS: Pulses normal.? Respiratory: No respiratory distress.? Abdomen: Soft and nontender.? Skin: ? Normal skin color. Extremities: 5/5 strength to bilateral upper and lower extremities; small abrasion to R hallux with numbness Neuro: Oriented X 3.? No motor deficit.? No sensory deficit. Reevaluation(s) Reevaluation #1: no evidence of fracture on xray Time: 22:11 Medications Administered Discontinued Medications Generic Name Dose Route Start Last Admin Trade Name Rosemarie PRN Reason Stop Dose Admin Acetaminophen 650 mg 10/22/23 21:25 10/22/23 21:30 Acetaminophen 325 Mg Tablet PO 10/22/23 21:26 650 mg ONCE ONE Administration Medical Decision Making Differential Diagnosis Differential Diagnoses: The differential diagnosis associated with the presentation includes (foot fracture, foot contusion) Independent Interpretation I performed an independent interpretation of an: Plain X-Ray (foot: no fracture ankle: no fracture) Independent Historian Clinical information obtained from an independent historian. History obtained from or confirmed by: Friend Discharge Plan Discharge Clinical Impression: Contusion of foot Patient Disposition: Home, Self-Care Instructions: Foot Contusion (ED), R.I.C.E. Treatment (ED) Additional Instructions: may take tylenol or motrin for pain Prescriptions: No Action omeprazole 10 mg capsule,delayed release(DR/EC) 10 mg PO DAILY Referrals: Tg Oshea MD [Primary Care Provider] - 10 days Interventions: ED Discharge Assessment Last Done: 10/22/23 22:30 Discharge Date/Time: 10/22/23 22:31 Print Language: Bengali
[2023-10-22 19:51] VITALS: BP 136/77; PULSE 85; RESP 18; TEMP 36.2; O2SAT 100; BMI 39.4
[2023-10-22] MEDS: Acetaminophen 325 MG TABLET 650 MG PO (21:30)
[2023-10-22 22:05] VITALS: BP 128/72; PULSE 78; RESP 20; TEMP 36.7; O2SAT 98
[2023-10-22 22:30] VITALS: BP 128/72; PULSE 78; RESP 20; TEMP 36.7; O2SAT 98
== END 2023-10-22 22:31 | disposition home or self-care (01) ==
PROVIDERS: Emergency Provider Emergency Medicine; PCP Internal Medicine
DX: S90.31XA Contusion of right foot, initial encounter (principal); W23.0XXA Caught, crushed, jammed, or pinched between moving objects, initial encounter; Y93.89 Activity, other specified; Y92.9 Unspecified place or not applicable; Y99.9 Unspecified external cause status
CPT/HCPCS: 73610; 73630; 99283